=== PATIENT | female | born 1940 | race Two or more races ===

== ENCOUNTER 2017-11-23 08:54 | Emergency (ER) | payer OTHER ==
[~2017-11-23] VITALS: Ht 149.9 cm; Wt 48.5 kg
[~2017-11-23 08:54] MED LIST: ZANTAC150 MG PO
== END 2017-11-23 14:59 | disposition home or self-care (01) ==
LOC: ER 08:54
DX: M54.89 Other dorsalgia (principal)

== ENCOUNTER 2023-04-16 08:28 | Emergency (ER) | payer OTHER ==
[~2023-04-16] VITALS: Ht 149.9 cm; Wt 43.5 kg
== END 2023-04-16 12:50 | disposition home or self-care (01) ==
LOC: ER 08:28
DX: R07.89 Other chest pain (principal); Z88.0 Allergy status to penicillin; Z91.018 Allergy to other foods